=== PATIENT | female | born 1995 | race Hispanic/Latino ===

== ENCOUNTER 2021-11-04 12:59 | Emergency (ER) | payer MEDICAID, SELFPAY | END 2021-11-04 13:29 | disposition home or self-care (01) | LOC: NAV ERS 12:59 | DX: O99.891 Other specified diseases and conditions complicating pregnancy (principal); R07.9 Chest pain, unspecified; Z3A.20 20 weeks gestation of pregnancy | CPT/HCPCS: 93005 ==

== ENCOUNTER 2022-01-14 20:17 | Emergency (ER) | payer OTHER, MEDICAID | END 2022-01-14 22:02 | disposition short-term general hospital (02) | LOC: NAV ERS 20:17 | DX: O99.891 Other specified diseases and conditions complicating pregnancy (principal); Z3A.31 31 weeks gestation of pregnancy | CPT/HCPCS: 99284 ==

== ENCOUNTER 2022-05-18 12:19 | Emergency (ER) | payer OTHER, MEDICAID | END 2022-05-18 13:28 | disposition home or self-care (01) | LOC: NAV ERS 12:19 | DX: S92.511A Displaced fracture of proximal phalanx of right lesser toe(s), initial encounter for closed fracture (principal); F17.290 Nicotine dependence, other tobacco product, uncomplicated; W01.198A Fall on same level from slipping, tripping and stumbling with subsequent striking against other object, initial encounter; Y92.000 Kitchen of unspecified non-institutional (private) residence as the place of occurrence of the external cause | CPT/HCPCS: 28510 ==

== ENCOUNTER 2022-09-05 05:15 | Emergency (ER) | payer SELFPAY ==
[2022-09-05] MEDS ORDERED: Ondansetron PF 4 MG/2 ML Vial ONE (05:30)
[2022-09-05 05:39] LABS: #Basophils 0.1 thou/uL (0.0-0.2); #Eosinphils 0.2 thou/uL (0.0-0.7); #Lymphocytes 1.4 thou/uL (1.20-3.40); #Monocytes 0.7 thou/uL (0.11-0.59); #Neutrophils 15.5 thou/uL (1.40-6.50); %Basophils 0.3 % (0.0-1.0); %Lymphocytes 7.9 % (21.0-51.0); %Monocytes 3.8 % (0.0-10.0); Hemoglobin 14.6 g/dL (12.0-16.0); Mean Corpuscular Hemoglobin 27.6 pg (27.0-31.0); Mean Corpuscular Volume 86.1 fl (78.0-98.0); Mean Platelet Volume 8.5 fL (7.4-10.4); Platelet Count 336 10x3/uL (130-400); RBC Distribution Width 12.9 % (11.5-14.5); Red Blood Cell (RBC) Count 5.31 mill/uL (4.20-5.40); White Blood Cell (WBC) Count 17.8 10x3/uL (4.8-10.8)
[2022-09-05 05:44] LABS: Chloride 107 mmol/L (98-107); Glucose 136 mg/dL (70-105)
[2022-09-05] MEDS ORDERED: Sodium Chloride 0.9% 1,000 ML ONE ×2 (05:44→07:32)
[2022-09-05 05:45] LABS: Albumin 4.3 g/dL (3.5-5.0); Calcium 9.4 mg/dL (7.6-10.4); Globulin 2.9 g/dL (2.4-3.5); Potassium 3.9 mmol/L (3.5-5.1); Protein, Total 7.2 g/dL (6.0-8.3); Sodium 136 mmol/L (136-145)
[2022-09-05 05:47] LABS: Anion Gap 14 mmol/L (10-20); Bilirubin, Total 0.6 mg/dL (0.2-1.2); Carbon Dioxide 19 mmol/L (22-29)
[2022-09-05 05:48] LABS: Alkaline Phosphatase 119 U/L (40-110); Estimated GFR 127
[2022-09-05 05:49] LABS: BUN (Urea Nitrogen) 15 mg/dL (7.0-18.7)
[2022-09-05 05:50] LABS: AST (SGOT) 13 U/L (5-34)
[2022-09-05 05:52] LABS: ALT (SGPT) 20 U/L (8-55)
[2022-09-05] MEDS ORDERED: Morphine 4 MG/ML VIAL ONE ×2 (06:05→08:37)
[2022-09-05] MEDS ORDERED: Sodium Chloride 0.9% 100 ML ONE (06:29)
[2022-09-05] MEDS ORDERED: Promethazine HCl 25 MG/ML VIAL ONE (06:29)
[2022-09-05 06:34] LABS: BHCG - Serum Negative (NEGATIVE); Pregs Control Bar Appear? YES (CONTROL BAR)
[2022-09-05 07:06] LABS: Bilirubin Negative (Negative); Blood, Urine Negative (Negative); Clarity Clear (Clear); Glucose, Urine (Dipstick) Negative (Negative); Ketone, Urine 80 mg/dL (Negative); Leukocyte Negative (Negative); Nitrite Negative (Negative); Protein, Urine (Dipstick) Negative (Neg-Trace); Specific Gravity, Urine 1.025 (1.005-1.030); Urobilinogen 0.2 mg/dL (Less than 2); pH, Urine 7.5 (5.0-9.0)
[2022-09-05] MEDS ORDERED: Iopamidol 370 76% 100 ML VIAL ONE (09:00)
== END 2022-09-05 08:54 | disposition home or self-care (01) ==
LOC: NAV ERS 05:15
DX: A08.39 Other viral enteritis (principal); D72.829 Elevated white blood cell count, unspecified; F17.290 Nicotine dependence, other tobacco product, uncomplicated
CPT/HCPCS: 74177; 80053; 81003; 84703; 85025; 96361; 96365; 96375; 96376; J2270; J2405; J2550; J7050; Q9967